=== PATIENT | male | born 1980 | race Caucasian/White ===

== ENCOUNTER → 2020-11-28 14:34 | Outpatient (CLI) | payer MEDICAID, SELFPAY ==
[2020-11-28 15:09] LABS: Basophils # 0.1 K/mm3 (0-0.2); Basophils % 0.7 % (0.1-2.0); Eosinophils # 0.1 K/mm3 (0.0-0.4); Hematocrit 47.8 % (42.0-52.0); Hemoglobin 15.8 g/dL (14.1-18.0); Mean Corpuscular Hemoglobin 32.2 pg (27.0-31.2); Mean Corpuscular Volume 97.5 fl (80-94); Mean Platelet Volume 8.8 fl (7.4-10.4); Monocytes # 0.7 K/mm3 (0.1-1.0); Monocytes % 7.4 % (1.7-9.3); Neutrophils # 5.9 K/mm3 (1.8-7.8); Platelet Count 321 K/mm3 (142-424); Red Cell Distribution Width 13.3 % (11.5-17.5); White Blood Count 8.7 K/mm3 (4.8-10.8)
[2020-11-28 17:47] LABS: Alanine Aminotransferase 38 U/L (12-78); Albumin Level 3.9 g/dl (3.5-5.0); Albumin/Globulin Ratio 1.3 (1.1-1.8); Alkaline Phosphatase 104 U/L (38-126); Aspartate Amino Transferase 30 U/L (17-59); Bilirubin,Total 0.6 mg/dl (0.2-1.3); Blood Urea Nitrogen 10 mg/dl (9-20); Calcium 8.8 mg/dl (8.4-10.2); Carbon Dioxide 27 mmol/L (22.0-30.0); Chloride 100 mmol/L (98-107); Cholesterol 210 mg/dl (140-200); Estimated Glomerular Filt Rate 83 ml/min (>60); GFR (African American) 100 ML/MIN (>60); Globulin 2.9 g/dL (1.3-3.2); Glucose 138 mg/dl (74-100); HDL Cholesterol 53 mg/dl (40-60); Sodium 135 mmol/L (136-145); Total Protein,Serum 6.8 g/dl (6.3-8.2); Triglycerides 299 mg/dl (30-150); VLDL Cholesterol 60 mg/dL (0-40)
[2020-11-28 17:59] LABS: Direct LDL Cholesterol 120.35 mg/dL (100-129)
[2020-11-28 18:05] LABS: 25-OH Vitamin D, Total 27.1 ng/mL (30-100)
[2020-11-28 18:07] LABS: T4 (Thyroxine) 8.4 ug/dl (5.53-11.0)
[2020-11-28 18:21] LABS: Prostate Specific Ag Screen 0.5 ng/ml (0.0-4.0); Thyroid Stimulating Hormone 1.36 uIU/mL (0.465-4.68)
[2020-11-30 08:07] LABS: Hemoglobin A1C 6.6 % (4.0-6.0)
== END ==
PROVIDERS: Visit Provider Nurse Practitioner Family
DX: Z00.00 Encounter for general adult medical examination without abnormal findings (principal); E55.9 Vitamin D deficiency, unspecified; Z12.5 Encounter for screening for malignant neoplasm of prostate
CPT/HCPCS: 80053; 80061; 82306; 83036; 84436; 84443; 85025; G0103